=== PATIENT | female | born 1950 | race Caucasian/White ===

== ENCOUNTER 2024-04-24 22:44 | Emergency (ER) | payer OTHER, SELFPAY ==
[2024-04-24 22:47] VITALS: BP 209/102
--- NOTE | 2024-04-25 00:47 | ED.GENMED ---
History of Present Illness
General
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
Source: patient and spouse
Exam Limitations: none
Time Seen by Provider: 04/24/24 23:57
Nursing documentation reviewed up to this point in time: agreed with except (Patient complains of left leg swelling that began today. No pain. )
History of Present Illness
History of Present Illness:
This is a 73-year-old woman who was evaluated by her PCP on Friday, for April 23 1 to 2-day history of urinary frequency, urgency, significant dysuria. She also notes mild vaginal itch. Urinalysis and urine culture were obtained on that day and
she was treated for UTI symptoms as well as vaginitis with nitrofurantoin and a one-time dose of fluconazole 150 mg. Patient has continued with UTI symptoms, dysuria, urinary frequency, urgency and was concerned with some left lower leg swelling
which she noticed earlier today. She has not had a rash, she denies generalized itching, no redness. No fever no chills, no back pain or flank pain. No nausea or vomiting, no abdominal pain. She has had no chest pain, no cough no shortness of
breath. No falls no injuries. She denies leg pain, denies knee pain.
No prior history of UTIs. She denies vaginal discharge, denies bleeding.
Due to left lower leg swelling she called her PCP and was recommended to change antibiotic from nitrofurantoin to Bactrim DS for which she took 1 dose this evening. Due to concern for leg swelling, she states she was recommended to come to the ED
for further evaluation.
She does admit however since taking 1 Bactrim DS tonight her urinary frequency, urgency, dysuria is very minimally improved.
Past History
Past History
ED Past Medical History: CVA, HTN, Hypercholesterolemia and Other (Obesity, osteoarthritis of bilateral knees, tension headache, prediabetes)
ED Past Surgical History: Gynecological and Orthopedic (Left knee replacement November 2017)
Social History
Tobacco: Non-smoker
Alcohol: None
Drug: None
Personal:
Living: with family
Employment: Employed
Family History
Family History: Other (Noncontributory)
Phy Exam
Physical Exam
Physical Exam:
GENERAL: 73-year-old obese woman appears her stated age, bright and alert, pleasant, appears in no acute distress. is accompanying.
EYE: anicteric
NECK: Supple, nontender, no meningismus, no significant adenopathy. No JVD.
ENT: oral mucosa is moist. No rhinorrhea.
CARDIAC: Regular rate and rhythm. no murmur.
LUNGS: Clear breath sounds bilaterally, no acute respiratory distress, no wheezes/rales/rhonchi
ABDOMEN: Rotund, soft, nondistended, without focal tenderness, no r/g, no cvat. normoactive BS.
: There is very minimal erythema at vaginal introitus but no discharge/exudate, no soft tissue swelling.
NEUROLOGICAL: Alert and oriented x3, no focal neuro deficits. Gait is scott and steady.
SKIN: Warm and dry, normal color, skin intact. No rash.
MUSCULOSKELETAL: Very minimal nonpitting edema of left ankle, left foot and minimal edema of left distal lower leg. Old well-healed surgical scar of left total knee replacement noted. There is no joint effusion, no tenderness to the knee.
Peripheral pulses are full and equal b/l. No palpable tenderness.
PSYCH: Normal and appropriate interaction.
Course
Orders/Labs/Results
Orders:
Orders
04/25/24 00:21
US Periph Venous LOWER Ext LT Urgent
Comment:
Reason For Exam: swelling LLE
04/25/24 01:11
Phenazopyridine HCl [Pyridium] 200 mg PO NOW STA
Vital Signs
Initial and Last Documented VS:
Initial Vital Signs
Temp Pulse Resp BP Pulse Ox
98.1 F 78 16 209/102 98
04/24/24 22:47 04/24/24 22:47 04/24/24 22:47 04/24/24 22:47 04/24/24 22:47
Last Documented Vital Signs
Temp Pulse Resp BP Pulse Ox
98.1 F 78 16 209/102 98
04/24/24 22:47 04/24/24 22:47 04/24/24 22:47 04/24/24 22:47 04/24/24 22:47
MDM/Problems Addressed
Differential Diagnosis Includes:
Mild left lower extremity edema appears dependent in nature and not consistent with adverse medication reaction.
Patient has been much more active over the past several days, going to and from the bathroom. No associated shortness of breath, chest pain etc. to suggest CHF.
No prior history of thromboembolism but will check ultrasound assess for potential DVT.
Patient currently being treated for UTI and with 1 dose of Bactrim admits to very mild improvement in UTI symptoms.
She may also have element of candidal vaginitis, has been treated with a one-time dose of Diflucan and no evidence of candidal vulvovaginitis on external genital exam.
At this point no indication to repeat urinalysis as outpatient urine culture is pending from April 23.
Will check venous Doppler left lower extremity.
Consider addition of short course of Pyridium for symptom control.
*Radiology
Radiology exam reviewed: other (Ultrasound left lower extremities negative for DVT.)
*Pulse Oximetry
Patient hypoxic: no
*Critical Care Note
Total Time (30-74mins, 75-104mins- exclusive of procedures): Not Applicable
Update Note
Update Note:
Ultrasound left lower extremity is negative for DVT.
Will add a short course of Pyridium for UTI symptom relief and recommend continuing Bactrim as prescribed.
Recommend she stay well-hydrated on a daily basis, elevate legs when sitting.
Follow-up with PCP for urine culture results and recheck.
ED Attending Note
-
Portions of this chart may have been created with voice recognition software.� Occasional wrong word or��sound alike� substitutions may have occurred due to the inherent limitations of voice recognition software.
Discharge Plan
Departure
Patient Disposition: Home (Routine Discharge)
Date of Disposition: 04/25/24
Time of Disposition: 01:11
Patient with high blood pressure during this ER visit?: No
Discharge Problem:
Urinary tract infection, dependent edema LLE
Instructions: Urinary Tract Infection, Adult (DC)
Prescriptions:
New
phenazopyridine [Pyridium] 200 mg tablet
200 mg PO TID PRN (Reason: UTI symptoms) 2 Days Qty: 6 0RF
No Action
atorvastatin 10 MG tablet
10 mg PO DAILY
atenolol 100 MG tablet
100 mg PO DAILY
sennosides [senna] 1 TABLET tablet
2 tab PO BID 0RF
acetaminophen 325 MG tablet
650 mg PO Q4HWA 0RF
polyethylene glycol 3350 17 GRAMS powder in packet
17 grams PO DAILY 0RF
clopidogrel 75 MG tablet
75 mg PO DAILY 0RF
magnesium hydroxide 30 ML suspension
30 ml PO DAILYPRN PRN (Reason: constipation) 0RF
docusate sodium 100 MG capsule
100 mg PO BID 0RF
lisinopril 5 MG tablet
5 mg PO DAILY Qty: 30 0RF
alum-mag hydroxide-simeth [Mag-Al Plus] 30 ML suspension
30 ml PO Q4HPRN PRN (Reason: INDIGESTION) 0RF
oxycodone 5 MG tablet
1 - 2 tab PO Q4HPRN PRN (Reason: pain) Qty: 90 0RF
tramadol 50 MG tablet
50 mg PO TID Qty: 60 0RF
Rx Instructions:
take 3 x day x 5 days then every 6h as needed for pain
aspirin 81 MG tablet,delayed release (DR/EC)
81 mg PO DAILY Qty: 30 0RF
albuterol sulfate [Proventil HFA] 90 MCG/PUFF HFA aerosol inhaler
2 puff inhalation Q4HPRN PRN (Reason: shortness of breath) Qty: 1 0RF
Rx Instructions:
Please dispense with a spacer
Referrals:
Kishor Tirado MD [Family Provider] - Call in 1-3 days for appt
Interventions
Interventions:
*Risk Screen - Suicide Last Done: 04/25/24 00:56
*General Assessment Last Done: 04/25/24 00:56
*Neglect/Abuse Screening Last Done: 04/25/24 00:56
ED- Fall Risk Assessment Last Done: 04/25/24 00:57
ED-Female Genitourinary Assessment Last Done: 04/25/24 00:54
Discharge Date and Time
Print Language: SPANISH
[2024-04-25] MEDS: Pyridium 200 MG PO (01:19)
[2024-04-25 01:23] VITALS: BP 186/92
== END 2024-04-25 01:47 | disposition home or self-care (01) ==
LOC: EMR 22:44
PROVIDERS: EMERGENCY PHYSICIAN Emergency Medicine; FAMILY PHYSICIAN Family Medicine
DX: N39.0 Urinary tract infection, site not specified (principal); R60.0 Localized edema; I10 Essential (primary) hypertension; E78.00 Pure hypercholesterolemia, unspecified; E66.9 Obesity, unspecified; M17.0 Bilateral primary osteoarthritis of knee; R73.03 Prediabetes; Z86.73 Personal history of transient ischemic attack (TIA), and cerebral infarction without residual deficits
CPT/HCPCS: 99284; 93971

== ENCOUNTER → 2024-12-23 09:28 | Outpatient (REF) | payer BC, SELFPAY | LOC: RAD 09:28 | PROVIDERS: ATTENDING PHYSICIAN Family Medicine | DX: M25.511 Pain in right shoulder (principal); M25.512 Pain in left shoulder | CPT/HCPCS: 73030 ==

== ENCOUNTER → 2025-02-18 12:19 | Outpatient (REF) | payer OTHER, SELFPAY | LOC: RAD 12:19 | PROVIDERS: ATTENDING PHYSICIAN Internal Medicine; FAMILY PHYSICIAN Family Medicine | DX: M53.3 Sacrococcygeal disorders, not elsewhere classified (principal) | CPT/HCPCS: 72202; 72220 ==

== ENCOUNTER → 2025-02-28 11:58 | Outpatient (REF) | payer OTHER, SELFPAY | LOC: RAD 11:58 | PROVIDERS: ATTENDING PHYSICIAN Internal Medicine; FAMILY PHYSICIAN Family Medicine | DX: M79.661 Pain in right lower leg (principal) | CPT/HCPCS: 93971 ==

== ENCOUNTER → 2025-07-07 07:33 | Outpatient (REF) | payer OTHER, SELFPAY | LOC: WDC 07:33 | PROVIDERS: ATTENDING PHYSICIAN Family Medicine | DX: Z12.31 Encounter for screening mammogram for malignant neoplasm of breast (principal) | CPT/HCPCS: 77063; 77067 ==